=== PATIENT | male | born 1950 | race Caucasian/White ===

== ENCOUNTER 2018-09-05 09:32 | Inpatient (IN) | payer MEDICARE ==
[~2018-09-05] VITALS: Ht 170.2 cm; Wt 65.5 kg
[2018-09-05] MEDS ORDERED: SODIUM CHLORIDE 0.9% 1,000 ML IV ONE (09:52)
[2018-09-05 10:06] VITALS: BP 140/89
[2018-09-05] MEDS ORDERED: ATOR40TA78 PO (10:14)
[2018-09-05] MEDS ORDERED: NITR0.6T4 SL (10:14)
[2018-09-05] MEDS ORDERED: FENTANYL PF 100 MCG/2ML ONE (11:19)
[2018-09-05] MEDS ORDERED: MIDAZOLAM 1 MG/ML, 2ML ONE (11:19)
[2018-09-05] MEDS ORDERED: HEPARIN 1,000 UNITS/ML, 10ML ONE (11:22)
[2018-09-05] MEDS ORDERED: VERAPAMIL 2.5 MG/ML, 2ML ONE (11:22)
[2018-09-05] MEDS ORDERED: NITROGLYCERIN 5 MG/ML, 10ML ONE (11:24)
[2018-09-05] MEDS ORDERED: TICAGRELOR 90 MG TABLET ONE (12:09)
[2018-09-05] MEDS ORDERED: BIVALIRUDIN 250 MG ONE (12:09)
[2018-09-05] MEDS ORDERED: ASPIRIN 325 MG TABLET EC ONE (12:34)
[2018-09-05] MEDS: SODIUM CHLORIDE 0.9% 1,000 ML IV SCH ×2 (12:39→20:35)
[2018-09-05] MEDS ORDERED: TEMPLATE NON-FORMULARY MED. (Nitroglycerin 0.6** (Nitroglycerin**) 0.6 MG) SL PRN (13:00)
[2018-09-05] MEDS ORDERED: ZOLPIDEM 5MG TABLET PO PRN (13:00)
[2018-09-05] MEDS ORDERED: ACETAMINOPHEN 325 MG TABLET PO PRN (13:00)
[2018-09-05] MEDS ORDERED: ONDANSETRON 2MG/ML, 2ML IVPush PRN (13:00)
[2018-09-05] MEDS ORDERED: ACETAMINOPHEN 325 MG TABLET ONE (13:13)
[2018-09-05] MEDS ORDERED: ASPIRIN 81 MG TABLET EC ONE (13:17)
[2018-09-05] MEDS: ASPIRIN 81 MG TABLET EC PO SCH (13:18)
[2018-09-05] MEDS: BIVALIRUDIN 250 MG in DEXTROSE 5% 50 ML IV SCH ×2 (14:18→14:54)
[2018-09-05 14:23] VITALS: BP 136/80
[2018-09-05] MEDS ORDERED: KETOROLAC 30 MG/1 ML IVPush ONE (16:00)
[2018-09-05 20:16] VITALS: BP 143/85
[2018-09-05] MEDS: TICAGRELOR 90 MG TABLET PO SCH (20:36)
[2018-09-05] MEDS ORDERED: ATORVASTATIN 40 MG TABLET PO SCH (21:00)
[2018-09-06 02:05] VITALS: BP 136/83
[2018-09-06] MEDS: SODIUM CHLORIDE 0.9% 1,000 ML IV SCH (04:39)
[2018-09-06 05:11] LABS: ANION GAP 7 mmol/L (5-15); CALCIUM 8.9 mg/dL (8.5-10.1); CHLORIDE 112 mmol/L (98-107)
[2018-09-06 05:12] LABS: CREATININE 0.97 mg/dL (0.7-1.3)
[2018-09-06 08:06] VITALS: BP 148/84
[2018-09-06] MEDS: ASPIRIN 81 MG TABLET EC PO SCH (09:06)
[2018-09-06] MEDS: TICAGRELOR 90 MG TABLET PO SCH (09:06)
[2018-09-06] MEDS ORDERED: TICA90TA PO (10:01)
[2018-09-06] MEDS ORDERED: ASPI81TA45 PO (10:01)
== END 2018-09-06 12:15 | disposition home or self-care (01) | DRG 247 ==
LOC: CACL 09:32 → 5SO 12:39 → CACL 13:35 → DCLOUNGE 09-06 11:45
PROVIDERS: ADMIT Internal Medicine Cardiovascular Disease; ATTEND Internal Medicine Cardiovascular Disease
PROC: 027034Z Dilation of Coronary Artery, One Artery with Drug-eluting Intraluminal Device, Percutaneous Approach (ICD-10-PCS; principal; 2018-09-05)
PROC: 4A023N7 Measurement of Cardiac Sampling and Pressure, Left Heart, Percutaneous Approach (ICD-10-PCS; 2018-09-05)
PROC: B2111ZZ Fluoroscopy of Multiple Coronary Arteries using Low Osmolar Contrast (ICD-10-PCS; 2018-09-05)
PROC: B2151ZZ Fluoroscopy of Left Heart using Low Osmolar Contrast (ICD-10-PCS; 2018-09-05)
DX: I25.110 Atherosclerotic heart disease of native coronary artery with unstable angina pectoris (principal); Q24.5 Malformation of coronary vessels; I45.10 Unspecified right bundle-branch block; E78.5 Hyperlipidemia, unspecified; R00.1 Bradycardia, unspecified; I10 Essential (primary) hypertension; Z82.49 Family history of ischemic heart disease and other diseases of the circulatory system; Z79.899 Other long term (current) drug therapy
CPT/HCPCS: 36415; 80048; 90656; 93005; 93458; 93571; 99156; 99157; C1769; C1894; C9600; G0378; J0583; J1644; J1885; J2250; J3010; C1725; C1874; C1887; Q9967